=== PATIENT | female | born 2000 | race African-American/Black ===

== ENCOUNTER 2022-11-07 17:37 | Emergency (ER) | payer OTHER ==
--- OUTSIDE RECORDS SUMMARY | 2022-11-07 17:41 | XMS REPORT | Continuity of Care Document ---
:[address] [facility] t Address [address] [place] [address] Dr. Pepper [address] [place] [id number] Care Team Providers Name Role Phone Asked, No Pcp Primary Care Physician Unavailable Nguyen BIANCHI, Jitendra Garcia Attending Clinician Hubert Walters MD Attending Clinician Payers Payer Name Policy Type Policy Number Effective Date Expiration Date S ource Problems This patient has no known problems. Allergies, Adverse Reactions, Alerts Allergy Allergy Status Severity Reaction(s) Onset Inactive Treating Comm ents Source Name Type Date Date Clinician Levoflox Propensi Active Swelling Meth monica acin ty to 05-24 adverse 00:00: Hospita reaction 00 l s to drug Social History Social Habit Start Date Stop Date Quantity Comments Source History SDOH [facility]ani Alcohol Frequency Hospita l History SDFL [facility] Alcohol Std Hospital Drinks History SDFL [facility] Alcohol Binge Hospital Alcohol intake 2021-12-21 2021-12-21 Current drinker [facility] dist 00:00:00 00:00:00 of alcohol Hospital (finding) Tobacco use and 2021-05-24 2021-05-24 Smokeless tobacco Me [facility] exposure 00:00:00 00:00:00 non-user Hospital Alcohol Comment 2021-05-24 2021-05-24 occ Yarsani 00:00:00 00:00:00 Hospital Sex Assigned At [birth year] Yarsani 00:00:00 00:00:00 Hospital Smoking Status Start Date Stop Date Source Never smoked tobacco [facility] Medications Ordered Filled Start Stop Current Ordering Indication Dosage Frequency Signature Comments Components Source Medication Medication Date Date Medication? Clinician (SIG) Name Name No known No No known Metho di medications 3-[address] 19:19: s Hospita 12 l ondansetron 4mg Q6H Take 1 Met royali (ZOFRAN) 4 05-24 tablet (4 st MG tablet 00:00: 04:59 mg total) Ho spita 00 :00 by mouth l every 6 (six) hours for 30 days. Vital Signs Vital Name Observation Time Observation Value Comments Source Systolic blood 2021-12-22 03:30:33 117 mm[Hg] [facility] Hospital pressure Diastolic blood 2021-12-22 03:30:33 70 mm[facility]Hg] [facility] pressure Heart rate 2021-12-22 03:30:33 87 /min [facility] Body temperature 2021-12-22 03:30:33 37.39 Grac[facility] Respiratory rate 2021-12-22 03:30:33 16 /min [facility] Oxygen saturation in 2021-12-22 03:30:33 97 /min [facility] Arterial blood by Pulse oximetry Body height 2021-12-22 01:16:00 160 cm [facility] Body weight 2021-12-22 01:16:00 61.236 kg [facility] BMI 2021-12-22 01:16:00 23.91 kg/m2 [facility] Systolic blood 2021-05-25 01:24:00 125 mm[Hg] [facility] Hospital pressure Diastolic blood 2021-05-25 01:24:00 59 mm[Hg] [facility] pressure Heart rate 2021-05-25 01:24:00 67 /min [facility] Body temperature 2021-05-25 01:24:00 37.39 Grac[facility] Respiratory rate 2021-05-25 01:24:00 19 /min [facility] Oxygen saturation in 2021-05-25 01:24:00 99 /min [facility] Arterial blood by Pulse oximetry Body height 2021-05-25 01:20:00 162.6 cm [facility] Body weight 2021-05-25 01:20:00 63.504 kg [facility] BMI 2021-05-25 01:20:00 24.03 kg/m2 [facility] Body mass index 2021-05-25 01:20:00 74.06 % [facility] (BMI) [Percentile] Per age and sex Procedures Procedure Date / Time Performing Clinician Source Performed ED REFERRAL TO [place] 2021-12-22 03:14:44 [facility] PHYSICIAN Cassy ORGANIZATION (PCP) XR CHEST 1 VW 2021-12-22 02:25[facility] 2021-12-22 02:25:00 [facility] PANEL WITH COVID-19 [facility] RT-PCR GROUP A STREP, RAPID 2021-12-22 01:24:00 [facility] ANTIGEN [place] INFLUENZA ANTIGEN 2021-12-22 01:24:00 [facility] Plan of Care Planned Activity Planned Date Details Comments Source Future Scheduled 2022-09-24 COVID-19 VACCINE (#1) [facility] Test 23:33:04 [code = COVID-19 VACCINE (#1)] Future Scheduled 2022-09-24 Screening for [facility] Test 23:33:04 Chlamydia trachomatis (procedure) [code = 103537186] Future Scheduled 2022-09-24 Hepatitis C screening [facility] Test 23:33:04 (procedure) [code = 176534916] Future Scheduled 2022-09-24 INFLUENZA VACCINE [facility] Test 23:33:04 [code = INFLUENZA VACCINE] Encounters Start End Encounter Admission Attending Care Care Encounter Source Date/Time Date/Time Type Type Clinicians Facility Department ID 2021-12-21 2021-12-21 Emergency Nguyen, 12.840.1 [id number] [facility] 19:46:00 21:38:00 Jitendra 72048.1.1 Valerie Jose 3.430.2.7 Hospit a .[id number] l .8 2021-12-21 2021-12-21 Emergency NGUYEN, [facility] [id number] Anna 00:00:00 00:00:00 JITEN[address]A Padilla [facility] 2021-12-21 2021-12-21 Travel 1.2.840.1 [id number] [facility] 00:00:00 00:00:[address] 3.430.2.7 0.2.7.3.698 Ho spita .[id number] 084.8 l .8 2021-05-24 2021-05-24 Emergency Le, Hubert 1.2.840.1 [id number] [facility] 20:16:00 21:28:[address] 3.430.2.7 Hospit a .[id number] l .8 2021-05-24 2021-05-24 Travel 1.2.840.1 [id number] [facility] 00:00:00 00:00:[address] 3.430.2.7 0.2.7.3.698 Ho spita .[id number] 084.8 l .8 Results This patient has no known results.
--- NOTE | 2022-11-07 18:30 | RAD REPORT ---
EXAM DESCRIPTION: US - Matter Eval Tm 1 - 11/07/2022 6:03 pm CLINICAL HISTORY: Abd cramping, Early . COMPARISON: No comparisons FINDINGS: A single gestational sac is seen within the uterus. The shape of the sac is within normal limits for gestational age. Within the sac is a single pole with crown-rump length of 3.4 cm, c orrelating to estimated gestational age of 9 weeks 6 days. Estimated date of delivery is 06/06/2023. Heart rate is 180 BPM. The placenta is not yet developed / visualized due to early gestational age. Ovaries not well visualized due to bowel gas. Maternal adnexae are within normal limits. IMPRESSION: Single live early intrauterine gestation with estimated gestational age of 9 weeks 6 day s, DONNELL 06/06/2023. No unusual or unexpected finding.
[2022-11-07 18:36] LABS: Absolute Lymphocytes (CBC) 3.3 K/uL (0.7-4.9); Hematocrit 36.2 % (36.0-45.0); Lymphocytes % 28.8 % (15.3-44.8); MCV 93.9 fL (80-100); MPV 8.6 fL (7.6-11.3); RBC Red Blood Cell Count 3.85 M/uL (3.86-4.86)
[2022-11-07 19:09] LABS: Potassium 3.4 mmol/L (3.5-5.1)
[2022-11-07 19:17] LABS: Urine Blood 2+ (Negative); Urine Glucose Negative (Negative); Urine Protein 1+ (Negative)
[2022-11-07] MEDS ORDERED: NA CHLORIDE 0.9% 1,000 ML ONE (19:36)
[2022-11-07 19:46] LABS: Urine Bacteria <20 /HPF (<20); Urine Mucus Slight /HPF (None Seen)
--- NOTE | 2022-11-07 20:30 | EDPHYS ---
Physician Documentation [facility] Name: Everardo Garcia Age: 22 yrs Sex: Female : 2000 Arrival Date: 11/07/2022 Time: 17:41 Bed Treatment Private MD: ED Physician Darian Mcguire HPI: 11/07 20:26 This 22 yrs old Black Female presents to ER via Ambulatory with complaints of 10 wks kb , vaginal spotting. 20:28 The patient presents to the emergency department with vaginal bleeding, described as kb spotting. The estimated gestational age is 9 weeks. course: care: private OB physician. Previous pregnancies: the patient has never been . Associated signs and symptoms: Pertinent positives: vaginal bleeding, Pertinent negatives: abdominal pain. The patient has not experienced similar symptoms in the past. The patient has not recently seen a physician. Pt reports pink discharge today. Denies abd pain.. 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 - Social history:: Smoking status: Patient denies any tobacco usage or history of. ROS: 20:20 Constitutional: Negative for fever, chills, and weight loss. kb 20:20 : Positive for vaginal bleeding. 20:20 All other systems are negative. Exam: 20:20 Constitutional: This is a well developed, well nourished patient who is awake, alert, kb and in no acute distress. Head/Face: Normocephalic, atraumatic. ENT: Moist Mucous membranes Cardiovascular: Regular rate and rhythm with a normal S1 and S2. No gallops, murmurs, or rubs. No pulse deficits. Respiratory: Respirations even and unlabored. No increased work of breathing. Talking in full sentences Abdomen/GI: Soft, non-tender. No distention Skin: Warm, dry with normal turgor. Normal color. MS/ Extremity: Pulses equal, no cyanosis. Neurovascular intact. Full, normal range of motion. Neuro: Awake and alert, GCS 15, oriented to person, place, time, and situation. Moves all extremities. Normal gait. Vital Signs: 18:15 BP 124 / 70; Pulse 74; Resp 16; Temp 97.5; Pulse Ox 100% on R/A; Weight 69.4 kg; Height iw 5 ft. 4 in. (162.56 cm); 19:37 BP 126 / 75; Pulse 78; Resp 17; Pulse Ox 100% on R/A; lg3 18:15 Body Mass Index 26.26 (69.40 kg, 162.56 cm) iw MDM: 18:12 Patient medically screened. kb 20:21 Differential diagnosis: viral Infection, URI, gastroenteritis. Data reviewed: vital kb signs, nurses notes. Counseling: I had a detailed discussion with the patient and/or guardian regarding: the historical points, exam findings, and any diagnostic results supporting the discharge/admit diagnosis, lab results, radiology results, the need for outpatient follow up, an OB/Gyne specialist, to return to the emergency department if symptoms worsen or persist or if there are any questions or concerns that arise at home. ED course: Pt has appt with OB on 11/07 17:42 Order name: Abo/rh Typing; Complete Time: 19:05 kb 11/07 17:42 Order name: Basic Metabolic Panel; Complete Time: 19:09 kb 11/07 17:42 Order name: CBC with Diff; Complete Time: 18:38 kb 11/07 17:42 Order name: Quantitative Hcg; Complete Time: 19:09 kb 11/07 19:17 Order name: Urine --Ancillary (enter results); Complete Time: 20:15 mw2 11/07 19:17 Order name: Urine Dipstick-Ancillary; Complete Time: 19:18 EDMS 11/07 17:42 Order name: IV Saline Lock; Complete Time: 18:30 kb 11/07 17:42 Order name: Labs collected and sent; Complete Time: 18:30 kb 11/07 17:42 Order name: NPO; Complete Time: 18:30 kb 11/07 17:42 Order name: Urine Dipstick-Ancillary (obtain specimen); Complete Time: 19:16 kb 11/07 18:03 Order name: Matter Eval Tm 1; Complete Time: 18:33 EDMS 11/07 19:18 Order name: Urine Microscopic Only; Complete Time: 19:51 kb 11/07 17:42 Order name: Urine Test (obtain specimen); Complete Time: 19:16 kb Administered Medications: 19:37 Drug: NS 0.9% 1000 ml Route: IV; Rate: 1000 ml; Site: left antecubital; lg3 Disposition Summary: 11/07/22 20:30 Discharge Ordered Location: Home kb Condition: Stable kb Diagnosis - Threatened kb Followup: kb - With: Emergency Department - When: As needed - Reason: Worsening of condition Followup: kb - With: Private Physician - When: 2 - 3 days - Reason: Recheck today's complaints, Continuance of care, Re-evaluation by your physician Discharge Instructions: - Discharge Summary Sheet kb - Threatened Miscarriage, Olwa-vs-Hben kb - Vaginal Bleeding During , First Trimester, Nojd-ri-Hvys kb Forms: - Medication Reconciliation Form kb - Thank You Letter kb - Antibiotic Education kb - Prescription Opioid Use kb Signatures: Dispatcher [employer] EDAliya Lan FNP-C TOÑITO-Vero Barrera, RN RN iw Trudi Pelaez RN RN lg3 Corrections: (The following items were deleted from the chart) 18:03 17:42 Transvaginal Ob+US.RAD.BRZ ordered. EDID EDID
--- NOTE | 2022-11-07 20:30 | ER ---
Nurse's Notes [facility] Name: Everardo Garcia Age: 22 yrs Sex: Female : 2000 Arrival Date: 11/07/2022 Time: 17:41 Bed Treatment Private MD: Diagnosis: Threatened Presentation: 11/07 18:13 Chief complaint: Patient states: light pink discharge , is about 9 weeks , no iw pain. Coronavirus screen: At this time, the client does not indicate any symptoms associated with coronavirus-19. Ebola Screen: Patient negative for fever greater than or equal to 101.5 degrees Fahrenheit, and additional compatible Ebola Virus Disease symptoms Patient denies exposure to infectious person. Patient denies travel to an Ebola-affected area in the 21 days before illness onset. No symptoms or risks identified at this time. Initial Sepsis Screen: Does the patient meet any 2 criteria? No. Patient's initial sepsis screen is negative. Does the patient have a suspected source of infection? No. Patient's initial sepsis screen is negative. Risk Assessment: Do you want to hurt yourself or someone else? Patient reports no desire to harm self or others. Onset of symptoms was November 07, 2022. 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 - Social history:: Smoking status: Patient denies any tobacco usage or history of. Screenin:37 [facility] ED Fall Risk Assessment (Adult) History of falling in the last 3 months, lg3 including since admission No falls in past 3 months (0 pts). Abuse screen: Denies threats or abuse. Denies injuries from another. Nutritional screening: No deficits noted. Tuberculosis screening: No symptoms or risk factors identified. Assessment: 19:37 General: Appears in no apparent distress. comfortable, Behavior is calm, cooperative. lg3 Pain: Denies pain. Neuro: No deficits noted. Madden Agitation-Sedation Scale (RASS): 0 - Alert and Calm Level of Consciousness is awake, alert, obeys commands, Oriented to person, place, time, situation. Cardiovascular: No deficits noted. Denies chest pain, shortness of breath. Respiratory: No deficits noted. Airway is patent Trachea midline Respiratory effort is even, unlabored, Respiratory pattern is regular, symmetrical. GI: No deficits noted. : Reports vaginal bleeding that is spotty. EENT: No deficits noted. No signs and/or symptoms were reported regarding the EENT system. Derm: No deficits noted. No signs and/or symptoms reported regarding the dermatologic system. Skin is intact, is healthy with good turgor, Skin is dry, Skin is normal. Musculoskeletal: No deficits noted. No signs and/or symptoms reported regarding the musculoskeletal system. Circulation, motion, and sensation intact. Range of motion: intact in all extremities. Vital Signs: 18:15 BP 124 / 70; Pulse 74; Resp 16; Temp 97.5; Pulse Ox 100% on R/A; Weight 69.4 kg; Height iw 5 ft. 4 in. (162.56 cm); 19:37 BP 126 / 75; Pulse 78; Resp 17; Pulse Ox 100% on R/A; lg3 18:15 Body Mass Index 26.26 (69.40 kg, 162.56 cm) iw ED Course: 17:41 Patient arrived in ED. mr 17:41 Aliya Stone FNP-C is PHCP. kb 17:41 Darian Mcguire MD is Attending Physician. kb 18:03 Matter Eval Tm 1 In Process Unspecified. EDMS 18:14 Triage completed. iw 18:15 Arm band placed on. iw 18:30 Inserted saline lock: 20 gauge in left antecubital area, using aseptic technique. Blood zm collected. 18:30 Abo/rh Typing Sent. zm 18:30 Basic Metabolic Panel Sent. zm 18:30 CBC with Diff Sent. zm 18:30 Quantitative Hcg Sent. zm 19:37 Patient has correct armband on for positive identification. Placed in gown. Bed in low lg3 position. Call light in reach. Side rails up X 1. Door closed. Noise minimized. Warm blanket given. Family accompanied patient. 19:37 No provider procedures requiring assistance completed. IV is patent, with good blood lg3 return. 20:35 IV discontinued, intact, bleeding controlled, No redness/swelling at site. Pressure lg3 dressing applied. Administered Medications: 19:37 Drug: NS 0.9% 1000 ml Route: IV; Rate: 1000 ml; Site: left antecubital; lg3 Medication: 19:37 VIS not applicable for this client. lg3 Outcome: 20:30 Discharge ordered by MD. mckeon 20:34 Discharged to home ambulatory. lg3 20:34 Condition: stable 20:34 Discharge instructions given to patient. 20:34 Instructed on discharge instructions, follow up and referral plans. 20:35 Patient left the ED. lg3 Signatures: Dispatcher [employer] EDCO Aliya Stone, FERNANDO MERLOSP-Mechelle Schumacher mr Vero Gandhi RN RN iw Trudi Pelaez RN RN lg3 Fatoumata Aggarwal
[2022-11-07 22:10] VITALS: TEMP 97.5; O2SAT 100
[2022-11-07 22:11] VITALS: BP 126/75
== END 2022-11-07 20:35 | disposition home or self-care (01) ==
LOC: ER 17:37
DX: O20.0 Threatened abortion (principal); Z3A.10 10 weeks gestation of pregnancy; Z88.1 Allergy status to other antibiotic agents
CPT/HCPCS: 85025; 80048; 36415; 86900; 81025; 86901; 84702; 76801; J7030; 81003; 81015